=== PATIENT | female | born 1980 | race Caucasian/White ===

== ENCOUNTER 2025-09-06 09:08 | Emergency (ER) | payer BC, SELFPAY ==
[2025-09-06 09:17] VITALS: BP 151/106; PULSE 81; O2SAT 96
[2025-09-06 09:20] VITALS: BP 151/106; PULSE 90; RESP 15; TEMP 36.8; O2SAT 99; BMI 53.1
--- NOTE | 2025-09-06 09:30 | ED_ITS ---
Discharge Plan Disposition Patient Disposition: Home, Self-Care Condition: Fair Prescriptions Prescriptions: New sulfamethoxazole-trimethoprim [Bactrim DS] 800-160 mg tablet 1 tab PO BID 7 Days Qty: 14 0RF cephalexin 500 mg capsule 500 mg PO QID 7 Days Qty: 28 0RF Referrals Follow up/Referrals: Provider,Referral, [Primary Care Provider, Medical] - See instructions Activity Restrictions/Add. Instructions Additional Instructions/Restrictions: Your workup today shows cellulitis, which is an infection of your skin. You are being prescribed 2 antibiotics. Take these as prescribed. Avoid excessive handwashing and scratching as this likely introduces bacteria into the area. I if you develop any new or worsening symptoms, or if you become concerned for your help for any reason, return to the emergency department for evaluation. Clinical Impressions Clinical Impression: Cellulitis Instructions Patient Instructions: DI for Skin Abscess Print Language Print Language: Martiniquais Discharge ED Provider: Terrance Brandt Adult HPI General Chief complaint: Skin/Abscess/Foreign Body Stated complaint: rash on right wrist Time Seen by Provider: 09/06/25 09:20 Mode of Arrival: Ambulatory Source of Information: Patient Description of Symptoms (Recalled from ER Triage Doc. by RN): patient reports she is ocd and had to stay here with her family member in the icu and she overwashes her hands often due to the ocd, her hands are now red dry irriatated. she has a sore on her right wrist that is leaking clear liquid. she is concerned. History of Present Illness HPI narrative: Danielle Cadet is a 45-year-old female with a history of OCD and excessive handwashing tendencies who presents to the emergency department for complaints of infection on both hands and wrist. Patient states that she is from [place] but is here because her estfod-qu-crf is in the ICU. She states that over the last couple days, she has developed bumps, redness to fingers on both hands as well as her right wrist. She states that this has happened before and she was diagnosed with folliculitis that they believe is from excessive handwashing. She does state that she washes her hands over 100 times a day. She was treated with doxycycline and Bactroban before and it resolved these areas of infection. She is concerned she might have a small abscess. She denies any fevers. Related Data Previous Rx's ?Medication ?Instructions ?Recorded cephalexin 500 mg capsule 500 mg PO QID 7 days #28 cap s 09/06/25 sulfamethoxazole 800 1 tab PO BID 7 days #14 tabs 09/06/25 mg-trimethoprim 160 mg tablet (Bactrim DS) Allergies Allergy/AdvReac Type Severity Reaction Status Date / Time No Known Allergies Allergy Verified 09/06/25 09:25 [facility] Disclaimer: The information contained in this section may have been updated after the adan ent was seen, as this information can be updated by other users. Social History Smoking Status: Current every day smoker alcohol intake: never current occupational status: employed Travel in the last 8 weeks?: None ROS Obtained: Yes Systems reviewed as appropriate & no additional complaints except as documented Physical Exam General General appearance: alert, in no apparent distress and anxious Head Head exam: atraumatic Eye Eye exam: Present normal appearance ENT ENT exam: Present normal external ear exam Neck Neck exam: Present full ROM Chest Chest inspection: Present symmetric chest wall rise Respiratory Respiratory exam: Present normal lung sounds bilaterally; Absent respiratory distress Cardiovascular Cardiovascular exam: Present regular rate and normal rhythm Abdominal Exam Abdominal exam: Present soft; Absent tenderness or guarding Extremities Exam Extremities exam: Present normal inspection Back Exam Back exam: Present normal inspection Neurological Exam Neurological exam: Present alert and oriented X3 Psychiatric Psychiatric exam: Present normal affect Skin Skin exam: Present warm and dry Expanded Skin Exam Comment: Bilateral upper extremities: Left hand with area of erythema and mild swelling to the dorsal aspect of the left middle finger that does not cross the joint spaces. She has a small papule on the right hand along the ring finger and is mildly erythematous. Along the volar aspect of the right wrist, she has an area of erythema and mild swelling and induration. 2+ radial pulse. Neurovascular intact distally. Medical Decision Making Medical Records Screening: Per USPSTF and CDC recommendations, given the prevalence of disease in our region, it is our hospital?s policy to screen for HIV and viral Hepatitis for all patients aged 18 and over and those with ongoing risk factors. Shai Inquiry Pt receiving controlled substance: No Vital Signs: 09/06/25 09:17 09/06/25 09:20 09/06/25 09:54 Temperature 98.2 F 98.2 F Temperature Source Oral Pulse Rate 81 90 Pulse Rate [Right Radial] 90 Respiratory Rate 15 15 Blood Pressure 151/106 H 151/106 H Blood Pressure [Right Arm] 151/106 H Blood Pressure Mean 136 Blood Pressure Mean [Right Arm] 121 Blood Pressure Source [Right Arm] Automatic Cuff Blood Pressure Position [Right Arm] Supine 02 Sat by Pulse Oximetry 96 99 Oxygen Delivery Method Room Air Orders (Tests/Meds): ORDERS Category Date Time Status POCUS Point of Care (ER Only) Stat Exams 09/06/25 09:29 Completed Medical Decision Narrative: Danielle Cadet is a 45-year-old female with a history of OCD and excessive handwashing tendencies who presents to the emergency department for complaints of infection on both hands and wrist. Patient states that she is from [place] but is here because her qjyaug-qi-hbg is in the ICU. She states that over the last couple days, she has developed bumps, redness to fingers on both hands as well as her right wrist. She states that this has happened before and she was diagnosed with folliculitis that they believe is from excessive handwashing. She does state that she washes her hands over 100 times a day. She was treated with doxycycline and Bactroban before and it resolved these areas of infection. She is concerned she might have a small abscess. She denies any fevers. On arrival, patient is hemodynamically stable, in no acute respiratory distress. Afebrile. Physical exam, stated above, revealed an an xious. Female in no significant distress. She has multiple areas of erythema and skin breakdown to her bilateral hands. She has multiple cracks/fissures in the skin of the fingers when she states that this is normal for her due to her frequent handwashing. She has an area of erythema, swelling and induration to the right volar wrist but pulses are intact. Hvgtt-[id number] MSK ultrasound was performed by me personally of the patient's wrist to ensure that there is no abscess that would require drainage. The other lesions on patient's hands appear to be cellulitic in nature, likely a result of skin breakdown from frequent handwashing and incessant scratching of these areas, which introduces bacteria. There is no drainable abscess identified on ultrasound. She does have cobblestoning in this area consistent with cellulitis. See procedure note for details. Lab work was considered, however I do not feel that it would change ED management as clinically I have low concern for sepsis. Will prescribe 7-day course of Bactrim and Keflex. I did encourage patient to avoid excessive handwashing as this is likely significantly contributing to her skin breakdown. I did encourage her to follow-up with her primary care doctor. All questions were answered. Return precautions were given. She demonstrated understanding and was in agreement this plan. She was then discharged from the emergency department in stable condition. Procedures Limited Ultrasound Indication:: Limited MSK/soft tissue ultrasound Indication: Soft tissue redness and swelling Identified structures: Location: Right volar forearm/wrist Findings: Cellulitis without evidence of abscess or necrotizing infection Impression: Cellulitis of soft tissue Images [were saved] to permanent archive The study [was] technically adequate Soft Tissue CPT Codes: CPT Neck: 86849-09 CPT Upper extremity: 40333-68 CPT Axilla: 53105-30 CPT Chest wall: 92581-94 CPT Breast: 83391-38-PS/LT (complete), 60572-67-DQ/LT (limited), CPT Upper Back: 44926-61 CPT Lower Back: 81005-59 CPT Abdominal Wall: 89840-44 CPT Pelvic Wall: 60955-60 CPT Lower Extremity: 97898-45 CPT Other Soft Tissue: 99988-76 This study was performed by me, and I personally interpreted all images/videos. Based on my clinical judgement, these images were adequate and did not necessitate further imaging. Critical Care Critical Care Time Critical Care Time: No
[2025-09-06 09:54] VITALS: BP 151/106; PULSE 90; RESP 15; TEMP 36.8; O2SAT 99
--- OUTSIDE RECORDS SUMMARY | 2025-09-06 09:57 | XMS_ITS | Clinical Summary ---
Author Organization [facility] Address [address] [place] [address] Care Team Providers Care Die Cast Patternmaker Name Role Phone Esau Lauren MD, Adi Mckinnon Primary Care Provider Allergies No known active allergies Medications benzonatate (TESSALON PERLES) 100 MG capsuleIndicati ons:Bronchitis Take 1 capsule by mouth 3 (Three) Times a Day As Needed for cough for up to 6 days. 18 capsule 08/14/2016 Active albuterol (PROVENTIL HFA;VENTOLIN HFA) 108 (90 BASE) MCG/ACT inhalerIndicati ons:Bronchitis Inhale 2 puffs Every 4 (Four) Hours As Needed for wheezing. 1 inhaler 08/14/2016 Active cetirizine (zyrTEC) 10 MG tablet Take 10 mg by mouth Daily. Active fluvoxaMINE maleate ER 150 MG capsule sustained-relea se 24 hr Take 300 mg by mouth Every Night. Active acetaminophen (TYLENOL) 325 MG tablet Take 2 tablets by mouth Every 4 (Four) Hours As Needed for Mild Pain . 10/05/2020 Active Active Problems Problem Noted Date Diagnosed Date Septicemia due to group B Streptococcus 10/05/20 20 Streptococcal cellulitis 10/05/2020 Asthma 10/03/2020 Tobacco abuse 10/03/2020 Lymphedema 10/03/2020 Hypomagnesemia 10/03/2020 Sepsis 10/02/2020 Severe persistent asthma with exacerbation 07/08 Sore throat 11/11/2016 Cough 08/15/2016 Chest congestion 08/15/2016 Resolved Problems Problem Noted Date Diagnosed Date Resolved Date Leukocytosis 10/03/2020 10/05/2020 Family History Medical History Relation Name Comments Ovarian cancer Maternal Grandfather Relation Name Status Comments Maternal Grandfather Social History Tobacco Use Types Packs/Day Years Used Date Smoking Tobacco: Every Day Cigarettes Smokeless Tobacco: Never Alcohol Use Standard Drinks/Week Comments No 0 (1 standard drink = 0.6 oz pur e alcohol) Abuse Screen Answer Date Recorded Unsafe at Home or Work/School Not on file Feels Threatened by Someone? Not on file 07/2023 Does Anyone Keep You from Co ntacting Others or Doint Things Outside the Home? Not on file 07/25/2023 Physical Sign of Abuse Present Not on file 1 Housing Stability Answer Date Recorded Current Living Arrangements Not on file 07/16 Potentially Unsafe Housing Conditions Not on woodrow e 07/25/2023 Family and Community Support Answer [place] e Recorded Help with Day-to-Day Activities Not on file 07/25/2023 Lonely or Isolated Not on file 07/25/2023 Employment Answer Date Recorded Do you want help finding or keeping work or a gm b? Not on file 07/25/2023 Disabilities Answer Date Recorded Concentrating, Remembering, or Making Decisions Difficulty Not on file 07/25/2023 Doing Errands Independently Difficulty Not on fi le 07/25/2023 Education Answer Date Recorded Help with school or training? Not on file Preferred Language Not on file 07/25/2023 Comments No Sex and Gender Information Value Date Recorded Sex Assigned at Not on file Legal Sex Female 11:13 AM EDT Gender Identity Not on file Sexual Orientation Not on file Occupation Industry Job Start Date Job End Date RN Not on file Not on file Not on file Last Filed Vital Signs Vital Sign Reading Time Taken Comments Blood Pressure 149/89 10/15/2020 7:44 AM EST Pulse 93 10/15/2020 7:44 AM EST Temperature 36.5 C (97.7 F) 10/15/2020 7:44 AM EST Respiratory Rate 20 10/15/2020 7:44 AM EST Oxygen Saturation 96% 10/15/2020 7:44 AM EST Inhaled Oxygen Concentration - - Weight 170 kg (375 lb) 10/13/2020 1:09 PM EST Height 162.6 cm (5' 4 ) 10/13/2020 1:09 PM EST Body Mass Index 64.37 10/13/2020 1:09 PM EST Plan of Treatment Health Maintenance Due Date Last Done Comments Annual Gynecologic Pelvic an d Breast Exam 1978 TDAP/TD VACCINES (1 - Tdap) 1997 ANNUAL PHYSICAL 07/08/2018 HEPATITIS C SCREENING 07/08/2018 MAMMOGRAM 2018 COLOGUARD 2023 COLON CANCER SCREENING 5 YEA R SIGMOIDOSCOPY 2023 COLONOSCOPY [address]23 [address] CAN[address]ER SCREENING 2023 CT COLONOGRAPHY 2023 FECAL OCCULT BLOOD TEST 2023 FIT Testing (1 year) 2023 INFLUENZA VACCINE 05/16/2025 Pneumococcal Vaccine 0-49 Aged Out No longer eligible based on patient's age to complete this topic Insurance Advance Directives * CPR (Attempt to Resuscitate) (Latest Code Status on File) Date Activated Date Inactivated Comments 10/02/2020 11:00 PM 10/05/2020 5:49 PM Question Answer Comments Code Status (Patient has no pulse and is not breathing): CPR (Attempt to Resuscitate) Medical Interventions (Patie nt has pulse or is breathing): Full Care Teams Die Cast Patternmaker Relationship Specialty Start Date End Date Adi Cifuentes Jr., MD [address] [facility] [address] [place] [address] PCP - General Family Medicine 07/08/18
--- OUTSIDE RECORDS SUMMARY | 2025-09-06 09:57 | XMS_ITS | Clinical Summary ---
Author Organization [facility] [place] [address] Care Team Providers Care Right Of Way Clearer Name Role Phone Adi Cifuentes MD Primary Care Provider [phone] Allergies No known active allergies Medications No known medications Active Problems Problem Noted Date Diagnosed Date Ankle injury, right, initial encounter 6 Family History Medical History Relation Comments Fanconi anemia Sister Relation Status Comments Maternal Grandmother Mother Alive Sister Social History Tobacco Use Types Packs/Day Years Used Date Smoking Tobacco: Every Day Cigarettes 1 25 Smokeless Tobacco: Never Alcohol Use Standard Drinks/Week Comments Yes 0 (1 standard drink = 0.6 oz pur e alcohol) Rarely on New Yrs Comments Unknown Sex and Gender Information Value Date Recorded Sex Assigned at Not on file Legal Sex Female 4:28 PM EST Gender Identity Not on file Sexual Orientation Not on file 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 file Not on file Last Filed Vital Signs Vital Sign Reading Time Taken Comments Blood Pressure 158/110 12/19/2017 8:39 AM EST Pulse 99 06/29/2016 1:00 PM EDT Temperature 36.8 C (98.3 F) 06/29/2016 1:00 PM EDT Respiratory Rate 18 06/29/2016 1:00 PM EDT Oxygen Saturation 98% 06/29/2016 1:00 PM EDT Inhaled Oxygen Concentration - - Weight 159.7 kg (352 lb) 12/19/2017 8:39 AM EST Height 165.1 cm (5' 5 ) 12/19/2017 8:39 AM EST Body Mass Index 58.58 12/19/2017 8:39 AM EST Plan of Treatment Health Maintenance Due Date Last Done Comments Breast Cancer Screening 1978 CT Colonography 1978 Colonoscopy 1978 Colorectal Cancer Screening 1978 FIT-DNA 1978 FIT 1978 FOBT 1978 Sigmoidoscopy 1978 Hepatitis B (HepB) Vaccine ( 1 of 3 - 19+ 3-dose series) 1997 Tdap/Td Vaccine >11 yo (1 - Tdap) 1997 Cervical Cancer Screening 12/19/20182017, 12/19/2017 Annual SDOH Screening 10/16/2024 Influenza Vaccine (#1) 2025 Haemophilus Influenzae Type B (Hib) Vaccine Aged Out No longer eligible b ased on patient's age to complete this topic Hepatitis A (HepA) Vaccine Aged Out N o longer eligible based on patient's age to complete this topic Meningococcal ACWY Aged Out No longer eligible based on patient's age to complete this topic Pneumococcal Vaccines 6-49 y o Risk Aged Out No longer eligible b ased on patient's age to complete this topic Polio (IPV) Aged Out No longer eligi ble based on patient's age to complete this topic Rotavirus (RV) Vaccine Aged Out No lo nger eligible based on patient's age to complete this topic Procedures Procedure Name Priority Date/Time Associated Diagnosis Comments PAP SMEAR Routine 12/19/2017 9:14 AM EST Well woman exam with routine gynecological exam Screening for malignant neoplasm of cervix from Last 3 Months or Most Recently Relevant to Health Maintenance Results * Pap Smear (12/19/2017 9:14 AM EST) Pathology SPECIMEN FROM UTERINE CERVIX / Unknown 12/19/2017 9:14 AM EST 12/25/2017 11:59 AM EDT Comment:THINPREP, CERVICAL/E NDOCERVICAL PAP - IMAGED Narrative SUNQUEST - 12/26/2017 10:35 AM EDT Patient Name: DANIELLE CADET [facility] [address] [place], [place] [address] GYNECOLOGIC CYTOLOGY REPORT DIAGNOSIS: NEGATIVE (No evidence of intraepithelial lesions or malignancy) SPECIMEN ADEQUACY: Satisfactory for evaluation: Endocervical cells present. Electronically Signed Out By Sonia Bernstein SPECIMEN SOURCE: Thinprep, Cervical/Endocervical Pap - Imaged CLINICAL HISTORY: Last Pap Date: 2009--neg LAST MENSTRUAL PERIOD: Pap smear testing is subject to false negative and false positive results. This result should be interpreted in conjunction with history and clinical findings. ThinPrep specimens have been analyzed by the ThinPrep Imaging System ([employer]), an automated imaging and review system. Varnish Maker Helper: Jonathan Hong MD Director of Cytopathology: Samantha Rosas MD Jameel Acuña MD PATHOLOGY/CYTOLOGY ORDERABLE S Final Result [facility] [address] [place] [address], [facility] from Last 3 Months or Most Recently Relevant to Health Maintenance Insurance ANTHEM Care Teams Right Of Way Clearer Relationship Specialty Start Date End Date Adi Cifuentes MD [address] [place] [address] PCP - General 03/10/10
--- OUTSIDE RECORDS SUMMARY | 2025-09-06 09:57 | XMS_ITS | Clinical Summary ---
Author Organization [facility] Address [address] [facility] [address] [place] [address] Care Team Providers Care Jewelry Inspector Name Role Phone Adi Cifuentes MD Primary Care Provider [phone] Social History Tobacco Use Types Packs/Day Years Used Date Smoking Tobacco: Never Assessed Comments Unknown Sex and Gender Information Value Date Recorded Sex Assigned at Not on file Legal Sex Female 7:39 PM EDT Gender Identity Not on file Sexual Orientation Not on file Plan of Treatment Health Maintenance Due Date Last Done Comments CT Colonography 1978 Colonoscopy 1978 Colorectal Cancer Screening 1978 FIT-DNA (Cologuard) 1978 FIT 1978 FOBT 1978 HIV Screening 1978 Hepatitis C Screening 1978 Sigmoidoscopy 1978 MMR Vaccines (1 of 1 - Stand mikey series) 1979 Hepatitis B Screening 1996 DTaP/Tdap/Td Vaccines (1 - Tdap) 1997 Hepatitis B Vaccines (1 of 3 - 19+ 3-dose series) 1997 Pap Smear 1999 Cervical Cancer Screening 2008 HPV/Cotest 2008 Mammogram 2018 Depression Risk Screening 10/16/2024 SDOH Screening 10/16/2024 COVID-19 Vaccine ( - 2024-2 6 season) 2025 Influenza Vaccine (#1) 2025 Zoster Vaccines (1 of 2) 2028 HIB Vaccines Aged Out No longer eligi ble based on patient's age to complete this topic HPV Vaccines Aged Out No longer eligi ble based on patient's age to complete this topic Hepatitis A Vaccines Aged Out No long er eligible based on patient's age to complete this topic IPV Vaccines Aged Out No longer eligi ble based on patient's age to complete this topic Meningococcal B Vaccine Aged Out No l onger eligible based on patient's age to complete this topic Meningococcal Vaccine Aged Out No milan dia eligible based on patient's age to complete this topic Pneumococcal Vaccine Aged Out No long er eligible based on patient's age to complete this topic Rotavirus Vaccines Aged Out No longer eligible based on patient's age to complete this topic Care Teams Jewelry Inspector Relationship Specialty Start Date End Date Adi Cifuentes MD [address] [facility] [address] [place] [address] PCP - General Family Medicine 07/10/20
== END 2025-09-06 09:58 | disposition home or self-care (01) ==
PROVIDERS: Emergency Provider Student in an Organized Health Care Education/Training Program
DX: L03.113 Cellulitis of right upper limb (principal); F42.9 Obsessive-compulsive disorder, unspecified
CPT/HCPCS: 99283